=== PATIENT | male | born 1940 | race African-American/Black ===

== ENCOUNTER 2022-01-18 16:28 | Emergency (ER) | payer OTHER ==
[~2022-01-18] VITALS: Ht 167.6 cm; Wt 95.3 kg
[2022-01-18 16:33] VITALS: BP_SYST 159
[2022-01-18] MEDS ORDERED: IBUP-1969 PO (19:06)
[2022-01-18 19:16] VITALS: BP_SYST 112
== END 2022-01-18 19:16 | disposition home or self-care (01) ==
LOC: SED 16:28
DX: S86.911A Strain of unspecified muscle(s) and tendon(s) at lower leg level, right leg, initial encounter (principal); E11.9 Type 2 diabetes mellitus without complications; I10 Essential (primary) hypertension; Z79.899 Other long term (current) drug therapy; X58.XXXA Exposure to other specified factors, initial encounter; Y93.89 Activity, other specified; Y92.89 Other specified places as the place of occurrence of the external cause; Y99.8 Other external cause status
CPT/HCPCS: 93971; 99284

== ENCOUNTER 2023-03-17 21:11 | Inpatient (IN) | payer OTHER ==
[~2023-03-17] VITALS: Ht 175.3 cm; Wt 110.4 kg
[~2023-03-17 21:11] MED LIST: IBUP-1969 PO
[2023-03-17 21:20] VITALS: BP_SYST 177
--- NOTE | 2023-03-17 21:20 | NUR ---
Placed in room 8 . Placed on electronic device monitor, blood pressure machine and pulse oximeter. To gown for exam. Side rails up. Report given to Nicole BURNS.
--- NOTE | 2023-03-17 21:21 | NUR ---
ER Dr.DEla David at bedside examining patient.
[2023-03-17] MEDS ORDERED: ASPIRIN 325 MG TABLET PO ONE (21:30)
--- NOTE | 2023-03-17 21:39 | NUR ---
pt presents to ED WITH C/O SOB THAT STARTED A WEEK AGO BUT TODAY PT STATED HIS BLOOD PRESSURE REACHED 218 SYSTOLIC AROUND 6 PM. PT DENIES CHEST PAIN/TIGHTNESS, EDEMA NOTED BILATERALLY LOWER EXTREMETIES, LUNG SOUNDS CLEAR ON AUSCULATION PT CONNECTED VS MONITOR NASAL CANNULA T 2LPM, MEDICATED ORDER SAFETY RAILS UP, NAD, EVEN UNLABORED RESPIRATIONS HEART RATE DROPS DOWN TO 47BPM ON MONITOR. PLACED PACER PADS ON PT ACCORDING TO DR LEAL.
[2023-03-17 21:52] LABS: ANION GAP 12 (5-15); BASOPHILS # (AUTO) 0.1 K/uL (0.0-0.2); CALCIUM 8.1 mg/dL (8.4-11.0); CHLORIDE 107 mmol/L (98-107); CREATININE 1.82 mg/dL (0.55-1.30); EOSINOPHILS # (AUTO) 0.1 K/uL (0.0-0.4); EOSINOPHILS % (AUTO) 2.2 % (0.0-4.0); GLUCOSE 114 mg/dL (70-99); HEMATOCRIT 38.4 % (36-54); HEMOGLOBIN 12.6 g/dL (14.0-18.0); LYMPHOCYTES # (AUTO) 1.2 K/uL (1.0-5.5); LYMPHOCYTES % (AUTO) 21.8 % (20.5-51.5); MEAN CORPUSCULAR HEMOGLOBIN 28 pg (27-31); MEAN CORPUSCULAR HGB CONC 33 % (32-36); MEAN CORPUSCULAR VOLUME 86 fL (79.0-98.0); MONOCYTES # (AUTO) 0.7 K/uL (0.0-1.0); MONOCYTES % (AUTO) 12.8 % (1.7-9.3); NEUTROPHILS # (AUTO) 3.5 K/uL (1.8-7.7); NEUTROPHILS % (AUTO) 62.2 % (40.0-70.0); PLATELET COUNT (AUTO) 194 K/uL (130-430); RED BLOOD CELL COUNT(AUTO) 4.47 MIL/uL (4.2-6.2); RED CELL DISTRIBUTION WIDTH 14.6 % (9.0-15.0); UREA NITROGEN, BLOOD 18 mg/dL (8-21); WHITE BLOOD COUNT (AUTO) 5.6 K/uL (4.8-10.8)
[2023-03-17 21:59] LABS: ALANINE AMINOTRANSFERASE 45 U/L (12-78); ALBUMIN 3.2 g/dL (3.4-4.8); ASPARTATE AMINOTRANSFERASE 24 U/L (10-37); TOTAL BILIRUBIN 0.5 mg/dL (0.0-1.0)
[2023-03-17] MEDS ORDERED: FUROSEMIDE 40 MG/4 ML VIAL IVP ONE (22:30)
[2023-03-17] MEDS ORDERED: ATROPINE SULFATE 1 MG/10 ML SYRINGE IVP ONE (22:30)
[2023-03-17] MEDS ORDERED: EMPA10TA PO (23:16)
[2023-03-17] MEDS ORDERED: ROSU40TA PO (23:16)
[2023-03-17] MEDS ORDERED: VALS320T2 PO (23:16)
[2023-03-17] MEDS ORDERED: FER300L PO (23:16)
[2023-03-17] MEDS ORDERED: FURO-150 PO (23:16)
[2023-03-17] MEDS ORDERED: ATEN-41 PO (23:16)
[2023-03-17] MEDS ORDERED: CICL90CR10 TP (23:16)
[2023-03-17] MEDS ORDERED: POTA99CA (23:16)
[2023-03-17] MEDS ORDERED: TERB15CR TP (23:16)
[2023-03-17] MEDS ORDERED: KETO60CR2 TP (23:16)
[2023-03-17] MEDS ORDERED: PRIM50TA27 PO (23:16)
[2023-03-18] VITALS (21 sets, daily range): BP systolic 131–165
[2023-03-18] MEDS ORDERED: HYDROcodone/ACETAMIN 5-325 MG TAB (NORCO/ VICODIN) PO ONE (00:15)
--- NOTE | 2023-03-18 00:46 | NUR ---
Admit bed requested Patient will be admitted to care of Dr.Y MARTÍNEZ. Admitted to ICU unit. Diagnosis HEART BLOCK Inpatient (Yes or No) YES Observation (Yes or No) NO Orientation concerns or request close to nursing station (Yes or No) NO Covid Status NEG On vent or bipap NO Isolation requirements NO Needs a sitter NO From Home (Yes or if No enter name of facility) YES Requires Dialysis (Yes or No) NO Med Rec Completed (Yes of No) YES
--- NOTE | 2023-03-18 01:30 | NUR ---
Patient will be admitted to care of DR.A MARTÍNEZ . Admitted to ICU unit. Will go to room 7. Belongings list completed. Complete and up to date summary report printed. SBAR report to RONNIE BURNS AND FISH RN be given at bedside with opportunity for questions.
--- NOTE | 2023-03-18 03:20 | NUR ---
[facility] [employer] CALLED and notified of new admission to ICU.
--- NOTE | 2023-03-18 03:35 | NUR ---
Dr Wilfred Amaya notified of new patient consult. Ordered patient NPO.
--- NOTE | 2023-03-18 07:00 | NUR ---
Received call from Dr Melissa Amaya requesting new EKG. Image of EKG was sent via phone. Order received to cancel Pace maker placement. Nursing cigar making machine supervisor Adriel was notified.
--- NOTE | 2023-03-18 08:00 | NUR ---
PATIENT STABLE VITALS SIGNS IN NORMAL LIMITS BUT STILL IN AF 46 DOCTOR RITA GRID TRIMMER IS AWARE AND HE PUTTING ORDER NOW ALSO PULMONANDRES TURNER THE PATIENT
[2023-03-18] MEDS ORDERED: LORazepam 2 MG/ML VIAL IVP PRN (10:45)
[2023-03-18] MEDS ORDERED: IPRATROPIUM BROM 0.5 MG/2.5 ML VIAL.NEB (ATROVENT) INH PRN (10:45)
[2023-03-18] MEDS ORDERED: ACETAMINOPHEN 325 MG TABLET PO PRN (10:45)
[2023-03-18] MEDS ORDERED: NALOXONE HCL 0.4 MG/ML AMP (NARCAN) IVP PRN ×2 (10:45)
[2023-03-18] MEDS ORDERED: HYDROcodone/ACETAMIN 5-325 MG TAB (NORCO/ VICODIN) PO PRN (10:45)
[2023-03-18] MEDS ORDERED: ALBUTEROL SULFATE 0.083% 2.5 MG/3 ML VIAL.NEB INH PRN (10:45)
[2023-03-18] MEDS ORDERED: ONDANSETRON HCL 4 MG/2 ML VIAL IVP PRN (10:45)
[2023-03-18] MEDS ORDERED: HYDROcodone/ACETAMIN 10-325 MG TAB PO PRN (10:45)
[2023-03-18] MEDS ORDERED: INSULIN REGULAR, HUMAN 100 UNITS/ML, 3 ML VIAL (humuLIN R) SUBCUT PRN (10:45)
--- NOTE | 2023-03-18 11:35 | NUR ---
Called Dr. Hair with a consult,spoke with [place] from the exchange Dr. Holliday alteration hand today
[2023-03-18] MEDS: NORMAL SALINE 5 ML DISP.SYRIN IVF SCH ×2 (14:29→21:35)
--- NOTE | 2023-03-18 14:39 | NUR ---
PATIENT STABLE VITALS SIGNS IN NORMAL LIMITS BS 76 STILL IN AF 48 NOT COMPLAINING OF PAIN AT THIS TIME
[2023-03-18] MEDS ORDERED: terbinafine HCL 30 GM CREAM.GM. TP SCH (21:00)
[2023-03-18] MEDS ORDERED: ROSUVASTATIN CALCIUM 5 MG/TAB (CRESTOR) PO SCH (21:00)
[2023-03-18] MEDS ORDERED: CICLOPIROX OLAMINE TP SCH (21:00)
[2023-03-18] MEDS ORDERED: VALSARTAN Non-Formulary 160 MG TABLET PO SCH (21:00)
[2023-03-18] MEDS: LOSARTAN POTASSIUM 50 MG TABLET (COZAAR) PO SCH (21:35)
[2023-03-18] MEDS: PRIMIDONE 50 MG TABLET PO SCH (21:35)
[2023-03-19] VITALS (17 sets, daily range): BP systolic 111–168
[2023-03-19 04:45] LABS: BASOPHILS # (AUTO) 0.1 K/uL (0.0-0.2); BASOPHILS % (AUTO) 1.3 % (0.0-2.0); EOSINOPHILS # (AUTO) 0.2 K/uL (0.0-0.4); EOSINOPHILS % (AUTO) 3.3 % (0.0-4.0); HEMATOCRIT 36.2 % (36-54); HEMOGLOBIN 11.9 g/dL (14.0-18.0); LYMPHOCYTES # (AUTO) 0.9 K/uL (1.0-5.5); LYMPHOCYTES % (AUTO) 16.8 % (20.5-51.5); MEAN CORPUSCULAR HEMOGLOBIN 28 pg (27-31); MEAN CORPUSCULAR HGB CONC 33 % (32-36); MEAN CORPUSCULAR VOLUME 85 fL (79.0-98.0); MONOCYTES # (AUTO) 0.7 K/uL (0.0-1.0); MONOCYTES % (AUTO) 14.1 % (1.7-9.3); NEUTROPHILS # (AUTO) 3.4 K/uL (1.8-7.7); NEUTROPHILS % (AUTO) 64.5 % (40.0-70.0); PLATELET COUNT (AUTO) 181 K/uL (130-430); RED BLOOD CELL COUNT(AUTO) 4.24 MIL/uL (4.2-6.2); RED CELL DISTRIBUTION WIDTH 14.4 % (9.0-15.0); WHITE BLOOD COUNT (AUTO) 5.3 K/uL (4.8-10.8)
[2023-03-19 05:14] LABS: ALANINE AMINOTRANSFERASE 33 U/L (12-78); ALBUMIN 2.8 g/dL (3.4-4.8); ANION GAP 9 (5-15); ASPARTATE AMINOTRANSFERASE 19 U/L (10-37); CALCIUM 7.9 mg/dL (8.4-11.0); CHLORIDE 108 mmol/L (98-107); CREATININE 1.79 mg/dL (0.55-1.30); GLUCOSE 83 mg/dL (70-99); TOTAL BILIRUBIN 0.8 mg/dL (0.0-1.0); UREA NITROGEN, BLOOD 19 mg/dL (8-21)
[2023-03-19] MEDS: NORMAL SALINE 5 ML DISP.SYRIN IVF SCH ×3 (06:40→21:16)
--- NOTE | 2023-03-19 07:38 | NUR ---
PATIENT STABLE VITALS SIGNS IN NORMAL LIMITS ALERT ORIENTED NOT COMPLAINING OF PAIN AT THIS TIME WAITING FOR MINE CAR MECHANIC COMING TO SEE THE PATIENT
[2023-03-19] MEDS: EMPAGLIFLOZIN 10 MG TABLET PO SCH (09:00)
[2023-03-19] MEDS ORDERED: KETOCONAZOLE 2%, 60 GM TOPICAL CREAM. (NIZORAL) TP SCH (09:00)
[2023-03-19] MEDS: FERROUS SULFATE 300 MG/5 ML UDC PO SCH (09:30)
[2023-03-19] MEDS: ATORVASTATIN 20 MG TABLET PO SCH (09:30)
[2023-03-19] MEDS: ATENOLOL 25 MG TABLET(TENORMIN) PO SCH (09:32)
[2023-03-19] MEDS: FUROSEMIDE 20 MG TABLET PO SCH (10:18)
[2023-03-19] MEDS: hydrALAZINE HCL 10 MG TABLET PO ONE ×2 (13:30→15:05)
--- NOTE | 2023-03-19 13:41 | NUR ---
RECEIVED REPORT FROM BRO PAZ(?), RN, ICU.
[2023-03-19] MEDS ORDERED: SODIUM POLYSTYRENE SULFONATE 15 GM/60 ML UDBTL PO ONE (14:00)
--- NOTE | 2023-03-19 14:14 | NUR ---
PATIENT STABLE VITALS SIGNS IN NORMAL LIMITS STABLE TRANSFERRED TO TELE ROOM 100 B REPORT AND ENDORSED CARE TO AMADA BURNS
--- NOTE | 2023-03-19 19:30 | NUR ---
OPENING NOTES Patient resting in bed - no s/s pain or distress noted. Respirations even and unlabored - head of bed elevated. IV site patent no s/s redness infection or infiltration. Bed locked and in lowest position. Call light within reach.
[2023-03-19] MEDS: PRIMIDONE 50 MG TABLET PO SCH (21:14)
[2023-03-19] MEDS: LOSARTAN POTASSIUM 50 MG TABLET (COZAAR) PO SCH ×2 (21:15→21:21)
[2023-03-19] MEDS: hydrALAZINE HCL 10 MG TABLET PO SCH (21:15)
[2023-03-20] VITALS: BP_SYST 148
[2023-03-20] MEDS: hydrALAZINE HCL 10 MG TABLET PO SCH ×3 (00:10→14:30)
[2023-03-20 05:27] LABS: BASOPHILS # (AUTO) 0.1 K/uL (0.0-0.2); BASOPHILS % (AUTO) 1.2 % (0.0-2.0); EOSINOPHILS # (AUTO) 0.2 K/uL (0.0-0.4); HEMATOCRIT 38.2 % (36-54); HEMOGLOBIN 12.4 g/dL (14.0-18.0); LYMPHOCYTES # (AUTO) 0.9 K/uL (1.0-5.5); LYMPHOCYTES % (AUTO) 15.9 % (20.5-51.5); MEAN CORPUSCULAR HEMOGLOBIN 28 pg (27-31); MEAN CORPUSCULAR HGB CONC 33 % (32-36); MEAN CORPUSCULAR VOLUME 86 fL (79.0-98.0); MONOCYTES # (AUTO) 0.8 K/uL (0.0-1.0); MONOCYTES % (AUTO) 13.9 % (1.7-9.3); NEUTROPHILS # (AUTO) 3.7 K/uL (1.8-7.7); PLATELET COUNT (AUTO) 172 K/uL (130-430); RED BLOOD CELL COUNT(AUTO) 4.45 MIL/uL (4.2-6.2); RED CELL DISTRIBUTION WIDTH 14.2 % (9.0-15.0); WHITE BLOOD COUNT (AUTO) 5.6 K/uL (4.8-10.8)
[2023-03-20 06:04] LABS: ALBUMIN 2.8 g/dL (3.4-4.8); ANION GAP 10 (5-15); ASPARTATE AMINOTRANSFERASE 18 U/L (10-37); CALCIUM 7.8 mg/dL (8.4-11.0); CHLORIDE 109 mmol/L (98-107); CREATININE 1.61 mg/dL (0.55-1.30); GLUCOSE 85 mg/dL (70-99); PHOSPHORUS 3.7 mg/dL (2.7-4.5); TOTAL BILIRUBIN 0.7 mg/dL (0.0-1.0); UREA NITROGEN, BLOOD 21 mg/dL (8-21)
[2023-03-20] MEDS: NORMAL SALINE 5 ML DISP.SYRIN IVF SCH ×2 (06:07→14:29)
[2023-03-20 06:08] LABS: ALANINE AMINOTRANSFERASE < 5 U/L (12-78)
[2023-03-20 08:12] VITALS: BP_SYST 159
[2023-03-20] MEDS: ATENOLOL 25 MG TABLET(TENORMIN) PO SCH (08:51)
[2023-03-20] MEDS: ATORVASTATIN 20 MG TABLET PO SCH (08:51)
[2023-03-20] MEDS: FERROUS SULFATE 300 MG/5 ML UDC PO SCH (08:51)
[2023-03-20] MEDS: FUROSEMIDE 20 MG TABLET PO SCH (08:52)
[2023-03-20] MEDS: EMPAGLIFLOZIN 10 MG TABLET PO SCH (09:00)
[2023-03-20 11:23] VITALS: BP_SYST 158
[2023-03-20 15:34] VITALS: BP_SYST 168
[2023-03-20] MEDS ORDERED: ISRA5CAP PO (16:32)
[2023-03-20 16:39] VITALS: BP_SYST 167
--- NOTE | 2023-03-20 18:12 | NUR ---
Removal of right wrist 22 gauge intravenous catheter and identification bracelet with all belongings sent with patient. Copy of discharge instructions given.
--- NOTE | 2023-04-02 11:23 | NUR ---
Certified Medical Assistant SLURRY MAN made a Post Discharge Follow Up Phone Call to former pt. Tony who stated he was doing well. He had an apt. with his PCP, Dr. Stanley,last week, has an apt. with Nephrology, Dr. Reyes on 06/13. Re. an apt. with a signals collector/analyst, Tony stated his PCP is going to be making a referral for him. Pt. stated he is taking all his home meds. as prescribed and has an AM/PM pill box to keep him organized. SLURRY MAN asked if Tony had any questions. Tony stated his blood pressure meds. changed while at the hospital and he had a prescription filled (30days). Tony asked if he would stay on this same new medication. SLURRY MAN referred him back to his PCP since he is waiting for a [employer]. Tony stated he will send an email. Tony stated PCP is very responsive and will get back to him.
== END 2023-03-20 19:03 | disposition home or self-care (01) | DRG 309 ==
LOC: SED 21:11 → SIC 03-18 00:42 → STU 03-19 14:35
PROVIDERS: ADMIT Preventive Medicine Preventive Medicine/Occupational Environmental Medicine; ATTEND Specialist
DX: R00.1 Bradycardia, unspecified (principal); I50.32 Chronic diastolic (congestive) heart failure; N17.9 Acute kidney failure, unspecified; I44.1 Atrioventricular block, second degree; I13.10 Hypertensive heart and chronic kidney disease without heart failure, with stage 1 through stage 4 chronic kidney disease, or unspecified chronic kidney disease; I48.4 Atypical atrial flutter; T44.7X5A Adverse effect of beta-adrenoreceptor antagonists, initial encounter; I48.92 Unspecified atrial flutter; E78.5 Hyperlipidemia, unspecified; Z20.822 Contact with and (suspected) exposure to COVID-19; Y92.89 Other specified places as the place of occurrence of the external cause; N18.9 Chronic kidney disease, unspecified; R73.9 Hyperglycemia, unspecified; E83.52 Hypercalcemia; G47.30 Sleep apnea, unspecified; R73.03 Prediabetes; E88.09 Other disorders of plasma-protein metabolism, not elsewhere classified; Z79.899 Other long term (current) drug therapy
CPT/HCPCS: 36415; 71045; 76770; 80053; 82962; 83735; 83880; 84100; 84484; 85025; 87081; 93005; 93306; 94760; 96374; 96375; 99291; 99292; G0378; J0461; J1815; J1940